=== PATIENT | female | born 1955 | race Hispanic/Latino ===

== ENCOUNTER → 2022-07-17 | Day surgery (SDC) | payer MEDICARE ==
[2022-07-13 14:57] LABS: BASOPHILS % 0.2 % (0.0-1.0); EOSINOPHILS # (AUTO) 0.1 (0.0-0.4); EOSINOPHILS % 0.7 % (0.0-6.0); HEMATOCRIT 36.8 % (34.2-44.1); HEMOGLOBIN 11.2 g/dL (12.0-16.0); LYMPHOCYTES # (AUTO) 2.2 (1.0-3.2); LYMPHOCYTES % 24.6 % (18.0-39.1); MEAN CORPUSCULAR HGB CONC 30.4 g/dL (31-35); MEAN CORPUSCULAR VOLUME 98.7 fL (81-99); MONOCYTES # (AUTO) 0.7 (0.2-0.8); MONOCYTES % 7.7 % (4.4-11.3); NEUTROPHILS % 66.6 % (38.7-80.0); PLATELET COUNT 286 x10e3/uL (140-360); RED BLOOD COUNT 3.73 x10e6/uL (3.6-5.1); RED CELL DISTRIBUTION WIDTH 13.4 % (11.7-14.4)
[~2022-07-17] MED LIST: AMLODIPINE BESY10 MG PO; GLIMEPIRIDE2 MG PO; HYDROCHLOROTH12.5 MG PO; HYOSCYAMINE SULFATE 0.5 MG/ML INJ ONE; LEVOTHYROXINE50 MCG PO; LIDOCAINE HCL 2% LOCAL INJ 5 ML SDV VIAL INJ ONE; LOSARTAN POTASS25 MG PO; METFORMIN HCL500 MG PO; MIDAZOLAM HCL 2 MG/2 ML VIAL ONE; PROPOFOL IV EMULSION 10 MG/ML 20 ML VIAL ONE; PROPOFOL IV EMULSION 10 MG/ML 50 ML VIAL IV ONE; SIMVASTATIN20 MG PO
[2022-07-17 08:55] VITALS: BP 130/75
== END | disposition home or self-care (01) ==
LOC: OR 06:21
PROVIDERS: ATTEND Internal Medicine Gastroenterology
DX: K29.50 Unspecified chronic gastritis without bleeding (principal); D12.3 Benign neoplasm of transverse colon; D12.2 Benign neoplasm of ascending colon; K31.7 Polyp of stomach and duodenum; K20.90 Esophagitis, unspecified without bleeding; K44.9 Diaphragmatic hernia without obstruction or gangrene; K59.00 Constipation, unspecified; E03.9 Hypothyroidism, unspecified; E11.9 Type 2 diabetes mellitus without complications; I10 Essential (primary) hypertension; E78.5 Hyperlipidemia, unspecified; Z01.810 Encounter for preprocedural cardiovascular examination; Z01.812 Encounter for preprocedural laboratory examination; Z79.84 Long term (current) use of oral hypoglycemic drugs; Z79.899 Other long term (current) drug therapy
CPT/HCPCS: 36415 ×2; 43239; 43251; 45380; 82948; 85025; 88305; 88342; 93005; C9113; J1980; J2001; J2250; J2704 ×2; 45378; 88304; 88312

== ENCOUNTER 2024-11-08 20:44 | Emergency (ER) | payer MEDICARE ==
[~2024-11-08] VITALS: Ht 160 cm; Wt 99.3 kg
[~2024-11-08 20:44] MED LIST changes: -HYOSCYAMINE SULFATE 0.5 MG/ML INJ ONE; -LIDOCAINE HCL 2% LOCAL INJ 5 ML SDV VIAL INJ ONE; -MIDAZOLAM HCL 2 MG/2 ML VIAL ONE; -PROPOFOL IV EMULSION 10 MG/ML 20 ML VIAL ONE; -PROPOFOL IV EMULSION 10 MG/ML 50 ML VIAL IV ONE
[2024-11-08 20:50] VITALS: PULSE 59; RESP 16; TEMP 97.8
[2024-11-08] MEDS: ALBUTEROL SULF 0.083% NEB SOLN 3 ML NEB NEB STA (21:18)
[2024-11-08] MEDS: PREDNISONE 20 MG TAB PO ONE (21:25)
[2024-11-08 22:10] VITALS: BP 136/57; PULSE 57; RESP 18; TEMP 98; O2SAT 97
[2024-11-08] MEDS ORDERED: EASY AIR COMPR1 EACH (22:13)
[2024-11-08] MEDS ORDERED: ALBUTEROL1.25 MG/3 NEB (22:13)
[2024-11-08] MEDS ORDERED: CORICIDIN HBP1 EAC3 PO (22:13)
[2024-11-08] MEDS ORDERED: AZITHROMYCIN250 MG PO (22:13)
[2024-11-08] MEDS ORDERED: PREDNISONE50 MG PO (22:13)
== END 2024-11-08 22:23 | disposition home or self-care (01) ==
LOC: FSED 21:02
DX: R05.9 Cough, unspecified (principal); J98.01 Acute bronchospasm; I10 Essential (primary) hypertension; E11.9 Type 2 diabetes mellitus without complications; Z11.52 Encounter for screening for COVID-19
CPT/HCPCS: 0223U; 71046; 83518; 87400; 87420; 99283; J7512